=== PATIENT | female | born 1990 | race African-American/Black ===

== ENCOUNTER 2018-06-30 10:43 | Emergency (ER) | payer MEDICAID, OTHER ==
[~2018-06-30] VITALS: Ht 162.6 cm; Wt 82.0 kg
[2018-06-30 11:15] VITALS: BP 114/66
[2018-06-30] MEDS ORDERED: NAPROXEN 375MG TABLET PO ONE (12:30)
== END 2018-06-30 12:42 | disposition home or self-care (01) ==
LOC: ER 10:43
DX: G44.209 Tension-type headache, unspecified, not intractable (principal)
CPT/HCPCS: 99282

== ENCOUNTER 2018-12-12 03:02 | Emergency (ER) | payer MEDICAID ==
[~2018-12-12] VITALS: Ht 162.6 cm; Wt 94.2 kg
[2018-12-12 04:31] LABS: HEMATOCRIT. 35.6 % (36.0-48.0); HEMOGLOBIN. 11.9 g/dL (12.0-16.0); MEAN CORPUSCULAR HEMOGLOBIN 29.4 pg (28.0-32.0); MEAN CORPUSCULAR VOLUME 88.4 fL (81.0-99.0); MEAN PLATELET VOLUME 7.7 fl (7.4-10.4); PLATELET 314 x1000/uL (130-400); RED BLOOD CELL COUNT 4.03 mill/uL (4.2-5.4); RED CELL DISTRIBUTION WIDTH 13.3 % (11.6-14.6)
[2018-12-12 04:34] LABS: CLARITY URINE CLOUDY (CLEAR); COLOR URINE YELLOW (YELLOW); KETONES URINE NEGATIVE (NEGATIVE); LEUKOCYTE ESTERASE URINE 2+ (NEGATIVE); NITRITE URINE POSITIVE (NEGATIVE); OCCULT BLOOD URINE 2+ (NEGATIVE); PROTEIN URINE NEGATIVE (NEGATIVE); SPECIFIC GRAVITY URINE 1.017 (1.005-1.030)
[2018-12-12 04:35] LABS: CHLORIDE 107 mEq/L (98-107)
[2018-12-12 04:58] LABS: B-HCG QUANTITATIVE 30039 mIU/mL (<3)
[2018-12-12 05:48] VITALS: BP 106/62
[2018-12-12 06:14] LABS: PLATELET ESTIMATE NORMAL
== END 2018-12-12 06:08 | disposition home or self-care (01) ==
LOC: ER 03:02
DX: O23.31 Infections of other parts of urinary tract in pregnancy, first trimester (principal); Z3A.12 12 weeks gestation of pregnancy; O20.0 Threatened abortion
CPT/HCPCS: 36415; 76801; 81003; 81025; 84702; 86850; 86900; 99284

== ENCOUNTER 2021-11-14 12:28 | Emergency (ER) | payer MEDICARE ==
[~2021-11-14] VITALS: Ht 162.6 cm; Wt 73.0 kg
[2021-11-14 12:30] VITALS: BP 118/80
[2021-11-14] MEDS ORDERED: SODIUM CHLORIDE 0.9% 1,000 ML IV ONE (14:30)
[2021-11-14] MEDS ORDERED: DIPHENHYDRAMINE 50MG/ML VIAL IV ONE (14:30)
[2021-11-14] MEDS ORDERED: METOCLOPRAMIDE HCL 10MG/2ML VIAL IV ONE (14:30)
== END 2021-11-14 17:09 | disposition home or self-care (01) ==
LOC: ER 12:28
DX: R51.9 Headache, unspecified (principal)
CPT/HCPCS: 96361; 96374; 96375; 99284; J1200; J2765; J7030

== ENCOUNTER 2022-09-01 19:17 | Emergency (ER) | payer MEDICAID, MEDICARE ==
[~2022-09-01] VITALS: Ht 162.6 cm; Wt 97.0 kg
[2022-09-01 19:55] VITALS: O2SAT 98
[2022-09-01] MEDS ORDERED: DEXAMETHASONE 10 MG/ML VIAL IM ONE (22:30)
[2022-09-01] MEDS ORDERED: KETOROLAC 60MG/2ML VIAL IM ONE (22:30)
[2022-09-01] MEDS ORDERED: AMOX-494 MT (22:31)
[2022-09-01 22:51] VITALS: BP 117/76; PULSE 98; RESP 14; TEMP 98.5
== END 2022-09-01 22:52 | disposition home or self-care (01) ==
LOC: ER 21:26
DX: J02.9 Acute pharyngitis, unspecified (principal); H10.9 Unspecified conjunctivitis
CPT/HCPCS: 99284; 81025; 96372; J1100; J1885